=== PATIENT | male | born 1985 | race Caucasian/White ===

== ENCOUNTER → 2017-10-28 | Outpatient (CLI) | payer OTHER ==
--- NOTE | 2017-10-28 11:09 | RADIOLOGY REPORT (SQ) ---
EXAM DESCRIPTION: MRI RT UPPER JOINT WITHOUT COMPLETED DATE/TIME: 10/28/2017 9:53 am REASON FOR STUDY: RIGHT WRIST PAIN AND INSTABILITY COMPARISON: None. TECHNIQUE: Right wrist images acquired and stored on PACS. Multiplanar images include fat sensitive sequences as T1, fluid sensitive sequences as FST2/STIR, cartilage sensitive sequences as FSPD, grad ient echo sequences. LIMITATIONS: None. FINDINGS: BONE MARROW: Cystic degenerative change of the ulnar styloid without acute fracture. CARPAL ALIGNMENT AND ARTICULATION: Negative ulnar variance. Mild degenerative change of the distal r adioulnar joint. EFFUSION: None noted. No loose bodies. SCAPHOLUNATE LIGAMENT: Intact without tear. LUNATE-TRIQUETRAL LIGAMENT: Intact without tear. TFC COMPLEX: Generalize signal alteration the TFCC particularly the ulnar attachments. Degenerative type tear. Small amount of fluid in the distal radioulnar joint. EXTRINSIC LIGAMENTS AND DISTAL RADIO-ULNAR JOINT: Dorsal and volar distal RUJ intact without subluxat ion of the distal ulna. 1-6 EXTENSOR COMPARTMENTS: Normal. Specifically no tendinopathy of the abductor pollicis longus or ex tensor pollicis brevis to suggest de Quervain's Syndrome. CARPAL TUNNEL AND MEDIAN NERVE: Normal volume and morphology of the carpal tunnel proximally at the l evel of the radiocarpal joint and distally at the hook of the hamate. No thickening or signal alterat ion of the median nerve. OTHER: No other significant finding. 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 Negative ulnar variance. Mild degenerative changes of the distal radioulnar joint. TECHNICAL DOCUMENTATION: JOB ID: [id number] [employer]- All Rights Reserved Reading location - IP/workstation name: [email or web address]
== END ==
LOC: RAD 09:00
PROVIDERS: ATTEND Family Medicine
DX: M25.531 Pain in right wrist (principal)

== ENCOUNTER → 2017-11-29 | Outpatient (CLI) | payer OTHER ==
[2017-11-29 14:38] LABS: ANION GAP 14 (5-19); BLOOD UREA NITROGEN 12 mg/dL (7-20); CALCIUM 9.3 mg/dL (8.4-10.2); CARBON DIOXIDE 25 mmol/L (22-30); CHLORIDE 105 mmol/L (98-107); GLUCOSE 100 mg/dL (75-110); SODIUM 143.9 mmol/L (137-145)
--- NOTE | 2017-11-29 21:13 | EKG REPORT ---
SEVERITY:- NORMAL ECG - SINUS RHYTHM : Confirmed by: Martir Leija MD 29-Nov-2017 21:12:45
== END ==
LOC: OD 13:20
PROVIDERS: ATTEND Orthopaedic Surgery
DX: Z01.812 Encounter for preprocedural laboratory examination (principal); Z01.810 Encounter for preprocedural cardiovascular examination
CPT/HCPCS: 36415; 80048; 93005; 93010

== ENCOUNTER 2018-04-10 13:12 | Emergency (ER) | payer OTHER ==
[2018-04-10] MEDS ORDERED: CEFTRIAXONE 1 GM/D5W RTU 1 GM/50 ML RTUPB IV ONE ×2 (14:43→19:00)
[2018-04-10] MEDS ORDERED: VANCOMYCIN HCL INJ 1000 MG VIAL IV ONE ×2 (14:44→19:00)
--- NOTE | 2018-04-10 14:46 | ER Document Report ---
ED Medical Screen (RME) - General Chief Complaint: Skin Problem Stated Complaint: SHOULDER PAIN Time Seen by Provider: 04/10/18 14:35 Notes: 32-year-old male presents emergency department referred from the [place] [facility] for a red hot swollen left shoulder. Patient has been buying testosterone microdose of the Internet and injecting it without a prescription. Patient states that the first 2 injections went into his left glue without any difficulty however this time he did not use an alcohol swab to clean the top of the container before he dropped the medication and then injected into his left deltoid. He injected it on Sunday and now has a red hot swollen left shoulder associated with a fever to 102.0 at home. TRAVEL OUTSIDE OF THE [place] IN LAST 30 DAYS: No - Related Data Allergies/Adverse Reactions: Penicillins Allergy (Verified 04/10/18 13:15) Past Medical History - General Information source: Patient - Social History Chew tobacco use (# tins/day): No Frequency of alcohol use: None Drug Abuse: None - Past Medical History Cardiac Medical History: Reports: Hx Hypertension Pulmonary Medical History: Reports: Hx Asthma Renal/ Medical History: Denies: Hx Peritoneal Dialysis GI Medical History: Reports: Hx Hiatal Hernia Psychiatric Medical History: Reports: Hx Depression - and anxiety Past Surgical History: Reports: Hx Orthopedic Surgery - Immunizations Hx Diphtheria, Pertussis, Tetanus Vaccination: Yes Review of Systems - Review of Systems Constitutional: See HPI, Fever Musculoskeletal: See HPI Physical Exam - Vital signs Vitals: Temp Pulse Resp BP Pulse Ox 98.4 F 96 16 168/87 H 97 04/10/18 13:35 04/10/18 13:35 04/10/18 13:35 04/10/18 13:35 04/10/18 13:35 Interpretation: Hypertensive - Notes Notes: Alert and oriented, no acute distress Left deltoid is swollen, firm, tenderness to palpation, hot to the touch, erythematous, erythema and swelling extends down to the level of the elbow. He does have full range of motion, infection does not appear to extend into the shoulder joint itself. Course - Vital Signs Vital signs: Temp Pulse Resp BP Pulse Ox 98.4 F 96 16 168/87 H 97 04/10/18 13:35 04/10/18 13:35 04/10/18 13:35 04/10/18 13:35 04/10/18 13:35 Doctor's Discharge - Discharge Referrals: ANGELY ARSHAD MD [Primary Care Provider] - Follow up as needed
[2018-04-10 15:18] LABS: ABSOLUTE LYMPHOCYTES (AUTO) 1.2 10^3/uL (0.5-4.7); ABSOLUTE MONOCYTES (AUTO) 1.1 10^3/uL (0.1-1.4); ABSOLUTE NEUT (AUTO) 8.2 10^3/uL (1.7-8.2); BASOPHILS % (AUTO) 0.3 % (0-2); EOSINOPHILS % (AUTO) 0.4 % (0-6); HEMATOCRIT 40.6 % (37.9-51.0); HEMOGLOBIN 14.2 g/dL (13.5-17.0); LYMPHOCYTES % (AUTO) 11.4 % (13-45); MEAN CORPUSCULAR HEMOGLOBIN 31.5 pg (27.0-33.4); MEAN CORPUSCULAR VOLUME 90 fl (80-97); MONOCYTES % (AUTO) 10.1 % (3-13); PLATELET COUNT 285 10^3/uL (150-450); RED BLOOD COUNT 4.52 10^6/uL (4.35-5.55); RED CELL DISTRIBUTION WIDTH 12.2 % (11.5-14.0); SEGMENTED NEUTROPHILS % (AUTO) 77.8 % (42-78); TOTAL CELLS COUNTED % (AUTO) 100 %; WHITE BLOOD COUNT 10.5 10^3/uL (4.0-10.5)
[2018-04-10 15:33] LABS: ALANINE AMINOTRANSFERASE 30 U/L (21-72); ALKALINE PHOSPHATASE 69 U/L (38-126); ANION GAP 9 (5-19); ASPARTATE AMINO TRANSFERASE 22 U/L (17-59); BILIRUBIN,DIRECT 0.3 mg/dL (0.0-0.4); BILIRUBIN,TOTAL 0.5 mg/dL (0.2-1.3); BLOOD UREA NITROGEN 9 mg/dL (7-20); CALCIUM 9.3 mg/dL (8.4-10.2); CARBON DIOXIDE 30 mmol/L (22-30); CHLORIDE 103 mmol/L (98-107); CREATINE KINASE 77 U/L (55-170); GLUCOSE 119 mg/dL (75-110); SODIUM 142.4 mmol/L (137-145); TOTAL PROTEIN 7.3 g/dL (6.3-8.2)
[2018-04-10 18:23] LABS: APPEARANCE,URINE SLIGHTLY-CLOUDY; BILIRUBIN,URINE NEGATIVE (NEGATIVE); GLUCOSE, URINE NEGATIVE (NEGATIVE); KETONES,URINE TRACE mg/dL (NEGATIVE); LEUKOCYTE ESTERASE,URINE NEGATIVE (NEGATIVE); NITRITE,URINE NEGATIVE (NEGATIVE); PROTEIN,URINE 30 mg/dL (NEGATIVE); TRIPLE PHOSPHATE CRYSTAL,URINE RARE /HPF; URINE SPECIFIC GRAVITY 1.029
[2018-04-10 18:27] LABS: COLOR,URINE YELLOW
--- NOTE | 2018-04-10 18:54 | RADIOLOGY REPORT (SQ) ---
EXAM DESCRIPTION: CT LT UPPER EXTREMITY WITH COMPLETED DATE/TIME: 04/10/2018 6:11 pm REASON FOR STUDY: red swollen L delt, injecting internet testoterone COMPARISON: None. TECHNIQUE: Postcontrast axial imaging performed through the left shoulder with reformatted coronal a nd sagittal imaging windowed for bone and soft tissues. Images saved to PACS. 3D IMAGING: Were 3D images as MIP, SSD, or volume rendering performed at the work station? No All CT scanners at this facility use dose modulation, iterative reconstruction, and/or weight based d osing when appropriate to reduce radiation dose to as low as reasonably achievable (ALARA). [facility]: Dose Right [facility]: CareDose [facility]: Dose Right [facility]: Teradose 4D [facility]: Yowza CONTRAST TYPE AND DOSE: contrast/concentration: Isovue 350.00 mg/ml; Total Contrast Delivered: 70.0 ml; Total Saline Delivered: 60.0 ml RENAL FUNCTION: BUN 9 creatinine 1 LIMITATIONS: None. RADIATION DOSE: CT Rad equipment meets quality standard of care and radiation dose reduction techniq ues were employed. CTDIvol: 12.4 mGy. DLP: 596 mGy-cm.mGy. FINDINGS: SOFT TISSUES: There is an area of decreased attenuation in the left deltoid. This measure s about 1 x 2 by 6 cm. BONES: No acute fracture. No dislocation. MINERALIZATION: Normal. ENHANCEMENT: No abnormal enhancement. OTHER: No other significant finding. IMPRESSION: Cannot exclude an abscess within the left deltoid. No osseous abnormality is seen. TECHNICAL DOCUMENTATION: JOB ID: [id number] Quality ID # [id number]: Final reports with documentation of one or more dose reduction techniques (e.g., Au tomated exposure control, adjustment of the mA and/or kV according to patient size, use of iterative reconstruction technique) 2010 [employer]- All Rights Reserved Reading location - IP/workstation name: [email or web address]
--- NOTE | 2018-04-10 19:13 | ER Document Report ---
ED General - General Chief Complaint: Skin Problem Stated Complaint: SHOULDER PAIN Time Seen by Provider: 04/10/18 14:35 TRAVEL OUTSIDE OF THE [place] IN LAST 30 DAYS: No - HPI Notes: Patient is a 32-year-old male that presents to the emergency department for chief complaint of left arm infection. Patient states he has been injecting himself with testosterone which is not prescribed for the last few weeks. He did an injection last Sunday in his left deltoid and shortly after started to have increased soreness. He then injected again into the left deltoid on Sunday. Patient states since then the redness and swelling has increased. He states he had a fever last night of 102. He denies any nausea, vomiting, numbness or tingling in the arm, shortness of breath and chest pain. Patient denies being on any antibiotics. 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 He states he is in the process of getting a doctor to prescribe it to him. He denies ever being tested for his testosterone levels. Past Medical History: Negative Past Surgical History: Left AC joint, right upper lobectomy Social History: Denies drugs alcohol and tobacco Family History: Reviewed and noncontributory for presenting illness Allergies: Reviewed, see documented allergy list. REVIEW OF SYSTEMS: CONSTITUTIONAL : fever No chills No diaphoresis No recent illness EENT: No vision changes No congestion No sore throat CARDIOVASCULAR: No chest pain No palpitations RESPIRATORY: No shortness of breath No cough No difficulty breathing GASTROINTESTINAL: No abdominal pain No nausea No vomiting No diarrhea GENITOURINARY: No dysuria No hematuria No difficulty urinating MUSCULOSKELETAL: No back pain No leg pain arm pain SKIN: No rashes Arm redness LYMPHATIC: No swollen, enlarged glands. NEUROLOGICAL: No lightheadedness No headache No weakness No paresthesias PSYCHIATRIC: No anxiety No depression PHYSICAL EXAMINATION: Vital signs reviewed, nursing noted reviewed. GENERAL: Well-appearing, well-nourished and in no acute distress. HEAD: Atraumatic, normocephalic. EYES: Eyes appear normal, extraocular movements intact, sclera anicteric, conjunctiva are normal. ENT: nares patent, oropharynx clear without exudates. Moist mucous membranes. NECK: Normal range of motion, supple without lymphadenopathy LUNGS: Breath sounds clear to auscultation bilaterally and equal. No wheezes rales or rhonchi. HEART: Regular rate and rhythm without murmurs ABDOMEN: Soft, nontender, normoactive bowel sounds. No rebound, guarding, or rigidity. No masses appreciated. EXTREMITIES: Left deltoid tenderness, good range of motion, no pitting or edema. NEUROLOGICAL: No focal neurological deficits. Moves all extremities spontaneously Motor and sensory grossly intact on exam. PSYCH: Normal mood, normal affect. SKIN: Warm, Dry, normal turgor, erythema and induration of the left deltoid. Induration measuring 9 cm x 12 cm. No palpable fluctuance. - Related Data Allergies/Adverse Reactions: Penicillins Allergy (Verified 04/10/18 13:15) Past Medical History - General Information source: Patient - Social History Smoking Status: Never Smoker Chew tobacco use (# tins/day): No Frequency of alcohol use: None Drug Abuse: None Family History: Reviewed & Not Pertinent Patient has suicidal ideation: No Patient has homicidal ideation: No - Past Medical History Cardiac Medical History: Reports: Hx Hypertension Pulmonary Medical History: Reports: Hx Asthma Renal/ Medical History: Denies: Hx Peritoneal Dialysis GI Medical History: Reports: Hx Hiatal Hernia Psychiatric Medical History: Reports: Hx Depression - and anxiety Past Surgical History: Reports: Hx Orthopedic Surgery - Immunizations Hx Diphtheria, Pertussis, Tetanus Vaccination: Yes Physical Exam - Vital signs Vitals: Temp Pulse Resp BP Pulse Ox 98.4 F 96 16 168/87 H 97 04/10/18 13:35 04/10/18 13:35 04/10/18 13:35 04/10/18 13:35 04/10/18 13:35 Course - Re-evaluation Re-evalutation: 04/10/18 19:10 Vitals reviewed. Nursing notes reviewed. Patient is afebrile and nontoxic in appearance. He has no leukocytosis. He is not septic. He does have an area of questionable abscess seen on CT scan of the left upper extremity and a significant overlying cellulitis. Patient received vancomycin and Rocephin in the emergency room. I recommend mended admission to the hospital for IV antibiotics and possible surgery consultation for incision and drainage. Patient does not wish to be admitted to the hospital. He has capacity to make medical decisions and understands the alternatives to leaving AGAINST MEDICAL ADVICE. He understands he is able to return to the hospital at any point in time for further reevaluation. I counseled him at length regarding the need for possible surgery as well as symptoms of compartment syndrome. He does not currently have compartment syndrome. Patient [facility]. He states he will return to the emergency room if his symptoms worsen at all. He will stop injecting testos terone that is not prescribed to him. Patient left AGAINST MEDICAL ADVICE. Laboratory 04/10/18 04/10/18 04/10/18 15:01 15:01 17:40 WBC 10.5 RBC 4.52 Hgb 14.2 Hct 40.6 MCV 90 MCH 31.5 MCHC 35.0 RDW 12.2 Plt Count 285 Seg Neutrophils % 77.8 Lymphocytes % 11.4 L Monocytes % 10.1 Eosinophils % 0.4 Basophils % 0.3 Absolute Neutrophils 8.2 Absolute Lymphocytes 1.2 Absolute Monocytes 1.1 Absolute Eosinophils 0.0 Absolute Basophils 0.0 Sodium 142.4 Potassium 4.0 Chloride 103 Carbon Dioxide 30 Anion Gap 9 BUN 9 Creatinine 0.99 Est GFR ( Amer) > 60 Est GFR (Non-Af Amer) > 60 Glucose 119 H Calcium 9.3 Total Bilirubin 0.5 Direct Bilirubin 0.3 Neonat Total Bilirubin Not Reportable Neonat Direct Bilirubin Not Reportable Neonat Indirect Bili Not Reportable AST 22 ALT 30 Alkaline Phosphatase 69 Creatine Kinase 77 Total Protein 7.3 Albumin 4.0 Urine Color YELLOW Urine Appearance SLIGHTLY-CLOUDY Urine pH 6.0 Ur Specific [place] 1.029 Urine Protein 30 H Urine Glucose (UA) NEGATIVE Urine Ketones TRACE H Urine Blood NEGATIVE Urine Nitrite NEGATIVE Urine Bilirubin NEGATIVE Urine Urobilinogen 2.0 H Ur Leukocyte Esterase NEGATIVE Urine WBC (Auto) 1 Urine RBC (Auto) 1 U Hyaline Cast (Auto) 2 Squamous Epi Cells Auto <1 Triple Phos Cryst (Auto) RARE Urine Mucus (Auto) MANY Urine Ascorbic Acid [address] 04/10/18 14:43 IMPRESSION: Cannot exclude an abscess within the left deltoid. No osseous abnormality is seen. - Vital Signs Vital signs: Temp Pulse Resp BP Pulse Ox 98.4 F 96 16 168/87 H 97 04/10/18 13:35 04/10/18 13:35 04/10/18 13:35 04/10/18 13:35 04/10/18 13:35 - Laboratory Result Diagrams: 04/10/18 15:01 04/10/18 15:01 Laboratory results interpreted by me: 04/10/18 04/10/18 04/10/18 15:01 15:01 17:40 Lymphocytes % 11.4 L Glucose 119 H Urine Protein 30 H Urine Ketones TRACE H Urine Urobilinogen 2.0 H Urine Ascorbic Acid 40 H Discharge - Discharge Clinical Impression: Abscess of deltoid region, Cellulitis of deltoid region Condition: Stable Disposition: AGAINST MEDICAL ADVICE Instructions: Abscess ([facility]), Cephalexin ([facility]), Trimethoprim-Sulfa ([facility]), Cellulitis ([facility]) Additional Instructions: Return to the emergency room at any point in time for further evaluation including IV antibiotics and surgery consultation. If you began to feel any numbness or tingling in your arm or you feel like you are arm feels firm to touch please return to the emergency room for concern of compartment syndrome. [facility] Prescriptions: Cephalexin Monohydrate [Keflex 500 mg Capsule] 500 mg PO Q6H 7 Days capsule Sulfamethoxazole/Trimethoprim [Bactrim Ds Tablet] 1 each PO BID #14 tablet Referrals: ANGELY ARSHAD MD [Primary Care Provider] - Follow up as needed
[2018-04-10 19:53] VITALS: BP 135/66
[2018-04-10] MEDS ORDERED: FAMOTIDINE 20 MG TABLET PO ONE (20:55)
[2018-04-10] MEDS ORDERED: DIPHENHYDRAMINE HCL 50 MG CAPSULE PO ONE (20:55)
[2018-04-10] MEDS ORDERED: METHYLPREDNISOLONE INJ 125 MG/2 ML SDV IV ONE (20:55)
== END 2018-04-10 21:40 | disposition left against medical advice (07) ==
LOC: ER 13:12
DX: L02.414 Cutaneous abscess of left upper limb (principal); L03.114 Cellulitis of left upper limb; Z88.0 Allergy status to penicillin; I10 Essential (primary) hypertension; J45.909 Unspecified asthma, uncomplicated; Z53.21 Procedure and treatment not carried out due to patient leaving prior to being seen by health care provider
CPT/HCPCS: 99284; 96375; 96365; 96366; 96367; 36415; 87040; 82550; 85025; 80053; 81001; 73201; J2930; J3370; J0696